=== PATIENT | female | born 1995 | race Caucasian/White ===

== ENCOUNTER 2017-09-17 08:08 | Outpatient (CLI) | payer OTHER ==
[~2017-09-17 08:08] MED LIST: AMOX1TAB12 PO; CLOBETASOL PROP50 ML TP; ELOCON45 G1 TP; FIORICET 50-321 EACH PO; FOLIC ACID1 MG; GILTUSS TR TAB1 EACH PO; METHOTREXATE2.5 MG; OSEL75CA PO; PROZAC40 MG; TEMOVATE TP; TOBREX5 ML OP; ZYRTEC10 MG PO
== END 2017-09-17 08:36 | disposition home or self-care (01) ==
LOC: SONOGRAMA 08:08
DX: R10.84 Generalized abdominal pain (principal)

== ENCOUNTER → 2017-09-23 11:48 | Outpatient (CLI) | payer OTHER ==
[~2017-09-23] VITALS: Ht 152.4 cm; Wt 103.0 kg
== END | disposition home or self-care (01) ==
LOC: PPHC 11:48
DX: J32.8 Other chronic sinusitis (principal); J06.9 Acute upper respiratory infection, unspecified

== ENCOUNTER 2017-09-23 13:59 | Outpatient (CLI) | payer OTHER | END 2017-09-23 14:12 | disposition home or self-care (01) | LOC: LAB 13:59 | DX: J06.9 Acute upper respiratory infection, unspecified (principal) ==

== ENCOUNTER → 2017-10-16 | Emergency (ER) | payer OTHER ==
[~2017-10-16] VITALS: Ht 165.1 cm; Wt 97.5 kg
== END | disposition home or self-care (01) ==
LOC: ER 06:26
DX: J40 Bronchitis, not specified as acute or chronic (principal)

== ENCOUNTER 2017-10-22 08:15 | Outpatient (CLI) | payer OTHER | END 2017-10-22 08:31 | disposition home or self-care (01) | LOC: LAB 08:15 | DX: R94.5 Abnormal results of liver function studies (principal) ==

== ENCOUNTER 2018-01-02 07:11 | Outpatient (CLI) | payer OTHER | END 2018-01-02 07:21 | disposition home or self-care (01) | LOC: LAB 07:11 | DX: L40.0 Psoriasis vulgaris (principal) ==

== ENCOUNTER 2018-01-02 09:38 | Outpatient (CLI) | payer OTHER | END 2018-01-02 11:22 | disposition home or self-care (01) | LOC: RAD 09:38 | DX: M79.672 Pain in left foot (principal) ==

== ENCOUNTER → 2018-01-02 | Outpatient (CLI) | payer OTHER | END | disposition home or self-care (01) | LOC: PPHC 08:23 | DX: M79.672 Pain in left foot (principal) ==

== ENCOUNTER → 2018-01-05 | Outpatient (CLI) | payer OTHER | END | disposition home or self-care (01) | LOC: PPHC 13:37 | DX: M79.672 Pain in left foot (principal) ==

== ENCOUNTER 2018-04-27 07:35 | Outpatient (CLI) | payer OTHER | END 2018-04-27 07:36 | disposition home or self-care (01) | LOC: LAB 07:35 | DX: L40.0 Psoriasis vulgaris (principal) ==

== ENCOUNTER 2018-04-27 12:59 | Outpatient (CLI) | payer OTHER | END 2018-04-27 13:03 | disposition home or self-care (01) | LOC: RAD 12:59 | DX: L40.0 Psoriasis vulgaris (principal) ==

== ENCOUNTER 2018-09-17 10:20 | Outpatient (CLI) | payer OTHER | END 2018-09-17 10:28 | disposition home or self-care (01) | LOC: LAB 10:20 | DX: A63.8 Other specified predominantly sexually transmitted diseases (principal); Z11.4 Encounter for screening for human immunodeficiency virus [HIV] ==

== ENCOUNTER 2018-09-27 05:30 | Emergency (ER) | payer OTHER ==
[~2018-09-27] VITALS: Ht 165.1 cm; Wt 103.4 kg
== END 2018-09-27 14:09 | disposition home or self-care (01) ==
LOC: ER 05:30
DX: S93.492A Sprain of other ligament of left ankle, initial encounter (principal); X50.3XXA Overexertion from repetitive movements, initial encounter; Y93.89 Activity, other specified; Y92.89 Other specified places as the place of occurrence of the external cause; Y99.8 Other external cause status

== ENCOUNTER 2018-10-27 14:38 | Outpatient (CLI) | payer OTHER | END 2018-10-27 15:00 | disposition home or self-care (01) | LOC: LAB 14:38 | DX: J11.1 Influenza due to unidentified influenza virus with other respiratory manifestations (principal); J20.0 Acute bronchitis due to Mycoplasma pneumoniae ==

== ENCOUNTER → 2019-03-11 | Outpatient (CLI) | payer OTHER | END | disposition home or self-care (01) | LOC: SONOGRAMA 13:11 → MAMO-SONO 13:15 | DX: N92.1 Excessive and frequent menstruation with irregular cycle (principal) ==

== ENCOUNTER 2019-03-28 16:56 | Emergency (ER) | payer OTHER ==
[~2019-03-28] VITALS: Ht 165.1 cm; Wt 104.3 kg
[2019-03-28] MEDS ORDERED: CLONAZEPAM0.125 MG (17:11)
[2019-03-28] MEDS ORDERED: PROZAC10 MG (17:11)
== END 2019-03-28 18:44 | disposition home or self-care (01) ==
LOC: ER 16:56
DX: S90.512A Abrasion, left ankle, initial encounter (principal); S80.212A Abrasion, left knee, initial encounter; S60.511A Abrasion of right hand, initial encounter; Y04.0XXA Assault by unarmed brawl or fight, initial encounter; Y93.89 Activity, other specified; Y92.89 Other specified places as the place of occurrence of the external cause; Y99.8 Other external cause status

== ENCOUNTER → 2019-05-05 07:01 | Outpatient (CLI) | payer OTHER ==
[~2019-05-05 07:01] MED LIST changes: +CLONAZEPAM0.125 MG; +PROZAC10 MG
== END | disposition home or self-care (01) ==
LOC: LAB 07:01
DX: H53.8 Other visual disturbances (principal); R51 Headache; Z00.00 Encounter for general adult medical examination without abnormal findings; Z13.6 Encounter for screening for cardiovascular disorders; N92.5 Other specified irregular menstruation

== ENCOUNTER 2019-06-20 12:10 | Outpatient (CLI) | payer OTHER | END 2019-06-20 12:15 | disposition home or self-care (01) | LOC: LAB 12:10 | DX: J11.1 Influenza due to unidentified influenza virus with other respiratory manifestations (principal) ==

== ENCOUNTER 2019-11-01 11:28 | Outpatient (CLI) | payer OTHER | END 2019-11-01 11:33 | disposition home or self-care (01) | LOC: LAB 11:28 | DX: J11.1 Influenza due to unidentified influenza virus with other respiratory manifestations (principal) ==

== ENCOUNTER 2020-08-14 10:02 | Emergency (ER) | payer OTHER ==
[~2020-08-14] VITALS: Ht 165.1 cm; Wt 98.4 kg
[2020-08-14] MEDS ORDERED: KETO10TA2 PO (14:12)
[2020-08-14] MEDS ORDERED: PEPCID AC20 MG PO (14:12)
[2020-08-14] MEDS ORDERED: LEVSIN/SL0.125 MG SL (14:12)
== END 2020-08-14 14:33 | disposition home or self-care (01) ==
LOC: ER 10:02
DX: K29.70 Gastritis, unspecified, without bleeding (principal); R10.13 Epigastric pain; K59.09 Other constipation

== ENCOUNTER 2020-08-17 06:54 | Outpatient (CLI) | payer OTHER ==
[~2020-08-17 06:54] MED LIST changes: +KETO10TA2 PO; +LEVSIN/SL0.125 MG SL; +PEPCID AC20 MG PO
== END 2020-08-17 06:59 | disposition home or self-care (01) ==
LOC: LAB 06:54
PROVIDERS: ATTEND Internal Medicine Gastroenterology
DX: R10.32 Left lower quadrant pain (principal); R10.13 Epigastric pain

== ENCOUNTER 2020-08-17 07:50 | Outpatient (CLI) | payer OTHER | END 2020-08-17 07:52 | disposition home or self-care (01) | LOC: TOM 07:50 | PROVIDERS: ATTEND Internal Medicine Gastroenterology | DX: R10.32 Left lower quadrant pain (principal); R10.13 Epigastric pain | CPT/HCPCS: 74183 ==

== ENCOUNTER 2020-08-18 13:53 | Inpatient (IN) | payer OTHER ==
[~2020-08-18] VITALS: Ht 160 cm; Wt 95.3 kg
--- NOTE | 2020-08-18 14:44 | NUR ---
SE RECIBE PTE ALERTA Y ORIENTADA X3,REFIERE TENER ABDOMINAL ,REFIERE QUE TIENE EMESIS POR 3 HOY LLEVA MODI CON DOLOR ABDOMINAL ,VOMITOS.
--- NOTE | 2020-08-18 16:22 | NUR ---
SE ORIENTA A PTE SOBRE PROCESO DE VENOPUNCION, EVERARDO DE MUESTRAS, ADMINISTRACION DE MED IV PTE REFIERE ENTENDER INF YANIV POR RN DE PENG.
== END 2020-08-23 11:02 | disposition home or self-care (01) | DRG 392 ==
LOC: ER 13:53 → LDR 23:58 → MEDI 08-19 02:51
PROVIDERS: ADMIT Internal Medicine; ATTEND Internal Medicine
PROC: 02HV33Z Insertion of Infusion Device into Superior Vena Cava, Percutaneous Approach (ICD-10-PCS; principal; 2020-08-18)
PROC: 0DB68ZX Excision of Stomach, Via Natural or Artificial Opening Endoscopic, Diagnostic (ICD-10-PCS; 2020-08-22)
PROC: 0DB78ZX Excision of Stomach, Pylorus, Via Natural or Artificial Opening Endoscopic, Diagnostic (ICD-10-PCS; 2020-08-22)
DX: K29.00 Acute gastritis without bleeding (principal); Z20.828 Contact with and (suspected) exposure to other viral communicable diseases

== ENCOUNTER 2020-08-27 09:57 | Outpatient (CLI) | payer OTHER | END 2020-08-27 10:01 | disposition home or self-care (01) | LOC: LAB 09:57 | PROVIDERS: ATTEND Internal Medicine | DX: B27.90 Infectious mononucleosis, unspecified without complication (principal) ==

== ENCOUNTER 2020-10-27 07:56 | Outpatient (CLI) | payer OTHER | END 2020-10-27 07:57 | disposition home or self-care (01) | LOC: LAB 07:56 | PROVIDERS: ATTEND Internal Medicine Gastroenterology | DX: R74.01 Elevation of levels of liver transaminase levels (principal) ==

== ENCOUNTER → 2020-12-08 09:14 | Outpatient (CLI) | payer OTHER | END | disposition home or self-care (01) | LOC: LAB 09:14 | PROVIDERS: ATTEND Obstetrics & Gynecology | DX: E78.2 Mixed hyperlipidemia (principal); N39.0 Urinary tract infection, site not specified; Z11.3 Encounter for screening for infections with a predominantly sexual mode of transmission; D53.8 Other specified nutritional anemias; E55.9 Vitamin D deficiency, unspecified; E03.8 Other specified hypothyroidism ==

== ENCOUNTER 2025-03-28 03:31 | Emergency (ER) | payer OTHER ==
[~2025-03-28] VITALS: Ht 162.6 cm; Wt 106.6 kg
[2025-03-28] MEDS ORDERED: PROMETHAZINE HCL 50 MG/ML AMPUL IM STA (04:24)
[2025-03-28] MEDS ORDERED: METOCLOPRAMIDE HCL 5 MG/ML VIAL IM STA (04:24)
[2025-03-28] MEDS ORDERED: KETOROLAC TROMETHAMINE 30 MG VIAL IV STA (04:26)
[2025-03-28] MEDS ORDERED: HYOSCYAMINE SULFATE 0.125 MG TAB.SUBL SL ONE (04:30)
[2025-03-28 04:53] LABS: BASO % 0.3 % (0.1-1.2); EOS # 0.26 (0.04-0.54); EOS % 2.1 % (0.7-7.0); LYMPH # 2.80 (1.18-3.74); LYMPH % 22.2 % (19.3-53.1); MEAN PLATELET VOLUME 11.10 fl (9.4-12.4); MONO # 0.68 (0.24-0.82); MONO % 5.4 % (4.7-12.5); NEUT # 8.82 (1.56-6.13); NEUT % 69.8 % (34.0-71.1); RED CELL DISTRIBUTION WIDTH 12.5 % (11.6-14.4)
[2025-03-28 05:13] LABS: BUN CREA RATIO 27.0 (7.0-25.0); CREATININE SERUM 0.55 mg/dL (0.55-1.02); GFR 132.59; GLUCOSE FASTING 95.0 mg/dL (65-100); OSMOLALITY SERUM 287.0 MOSM/KG (275-295)
== END 2025-03-28 08:02 | disposition home or self-care (01) ==
LOC: ER 03:31
DX: R10.13 Epigastric pain (principal); R11.10 Vomiting, unspecified

== ENCOUNTER → 2025-05-24 | Emergency (ER) | payer OTHER ==
[~2025-05-24] VITALS: Ht 160 cm; Wt 101.2 kg
[~2025-05-24] MED LIST changes: +0.9 % SODIUM CHLORIDE 500 ML IV ONE; +FAMOTIDINE/PF 20 MG/2 ML VIAL ONE; +FAMOtidine 10 MG/ML (4ML VIAL) IV ONE; +KETOROLAC TROMETHAMINE 30 MG VIAL IV ONE; +KETOROLAC TROMETHAMINE 30 MG VIAL ONE; +ONDANSETRON HCL 2 MG/ML VIAL IV ONE; +ONDANSETRON HCL 2 MG/ML VIAL ONE; +PROTONIX40 MG PO; +ZOFRAN8 MG PO
[2025-05-24 12:54] VITALS: BP 128/77; O2SAT 98
[2025-05-24 14:13] LABS: BASO % 0.3 % (0.1-1.2); EOS # 0.15 (0.04-0.54); EOS % 1.2 % (0.7-7.0); LYMPH # 2.69 (1.18-3.74); LYMPH % 22.2 % (19.3-53.1); MEAN PLATELET VOLUME 11.00 fl (9.4-12.4); MONO # 0.57 (0.24-0.82); MONO % 4.7 % (4.7-12.5); NEUT # 8.63 (1.56-6.13); NEUT % 71.4 % (34.0-71.1); RED CELL DISTRIBUTION WIDTH 13.1 % (11.6-14.4)
[2025-05-24 14:49] LABS: COVID-19 AG NEGATIVE (NEGATIVE)
[2025-05-24 14:51] LABS: INR 1.08
[2025-05-24 15:09] LABS: ALT/SGPT 18 U/L (12-78); AST/SGOT 21 U/L (15-37); BILIRUBIN TOTAL 0.82 mg/dL (0.3-1.2); BUN CREA RATIO 25 (7.0-25.0); CREATININE SERUM 0.53 mg/dL (0.55-1.02); GFR 138.38; GLOBULINA 3.1 G/DL (2.4-3.5); GLUCOSE FASTING 90 mg/dL (65-100); OSMOLALITY SERUM 283 MOSM/KG (275-295)
[2025-05-24 15:10] LABS: HCG QUANTITATIVE < 1 mUI/mL (1-3)
== END | disposition home or self-care (01) ==
LOC: ER 12:31
PROVIDERS: General Practice
DX: K29.60 Other gastritis without bleeding (principal); Z20.822 Contact with and (suspected) exposure to COVID-19